=== PATIENT | male | born 1975 | race Caucasian/White ===

== ENCOUNTER 2024-09-18 00:15 | Emergency (ER) | payer BC, SELFPAY ==
[2024-09-18 00:21] VITALS: BP 153/93
[2024-09-18 00:31] VITALS: BMI 37.6
--- NOTE | 2024-09-18 00:50 | ED.GENMED ---
History of Present Illness
General
Chief Complaint: Back Pain
Source: patient, spouse and previous hospital records (ED visit 2019 with complaints of exacerbation of chronic neck pain with right upper extremity radiculopathy)
Exam Limitations: none
Time Seen by Provider: 09/18/24 00:28
Nursing documentation reviewed up to this point in time: agreed with
History of Present Illness
History of Present Illness:
This is a 49-year-old gentleman who has history of cervical as well as lumbar DJD, chronic neck and back pain. History of cervical fusion 2006. He reports a prior history of issues with opioid medications and as such has elected to forego pain
management therapeutics, elects to avoid opioid medications. He admits to chronic low back pain which has been increasing in intensity/severity over the past several months and more so over the past week after he assisted his son with car repairs.
He denies fall nor insightful injury. He denies abdominal pain, no difficulty moving his bowels or bladder, no saddle anesthesia. He has not had a fever nor chills.
He complains of severe low back pain left greater than right with spasms of left low back pain that radiates down his left posterior leg to his left posterior ankle. Pain is much worse with movement, improves to some degree with sitting upright and
with maintaining a mildly right rotated trunk.
He took a dose of Advil earlier today with only minimal temporary relief.
Past History
Past History
ED Past Medical History: GERD, Hypercholesterolemia, Psychiatric (Depression, bipolar disorder, ADHD), Other (Cervical and lumbar degenerative disc disease, migraine headaches, chronic neck and back pain) and Other (Prior history of opioid use
disorder-elects to avoid opioid type medications. (08/2024))
ED Past Surgical History: Orthopedic (C3/C4 cervical fusion, September 2006)
Social History
Tobacco: Smoker
Alcohol: None
Personal:
Living: with family
Employment: Employed
Family History
Family History: Hypertension
Phy Exam
Physical Exam
Physical Exam:
GENERAL: 49-year-old overweight gentleman appears somewhat older than stated age, awake and alert, pleasant, appears in moderate distress, moderately uncomfortable. Sitting Semi-Flores's on stretcher, preferentially leaning slightly to the right.
Intermittently wincing in pain. is accompanying.
EYE: anicteric
NECK: Supple, nontender, no meningismus, no significant adenopathy.
ENT: oral mucosa is moist. No rhinorrhea.
CARDIAC: Regular rate and rhythm. no murmur.
LUNGS: Clear breath sounds bilaterally, no acute respiratory distress, no wheezes/rales/rhonchi
ABDOMEN: Rotund, soft, nondistended, without focal tenderness, no r/g, no cvat. normoactive BS.
BACK: No midline bony tenderness. Moderate left lumbar paravertebral muscle spasm. Markedly limited truncal/lumbar range of motion related to pain.
NEUROLOGICAL: Alert and oriented x3, no focal neuro deficits. Motor strength is 5/5 bilaterally. Gross sensation is intact.
SKIN: Warm and dry, normal color, skin intact. No rash.
MUSCULOSKELETAL: No C/C/E. peripheral pulses are full and equal b/l. No palpable tenderness.
PSYCH: Normal and appropriate interaction.
Course
Orders/Labs/Results
Orders:
Orders
09/18/24 00:48
Ketorolac [Toradol] 60 mg IM NOW STA
Lidocaine [Lidocaine 4% Patch] 1 patch TOPICAL NOW STA
Apply Lidocaine patch(s) to:: left lumbar
Prednisone [Deltasone] 60 mg PO NOW STA
diazePAM [Valium Injection] 10 mg IM NOW STA
Vital Signs
Initial and Last Documented VS:
Initial Vital Signs
Temp Pulse Resp BP Pulse Ox
98.7 F 96 18 153/93 98
09/18/24 00:21 09/18/24 00:21 09/18/24 00:21 09/18/24 00:21 09/18/24 00:21
Last Documented Vital Signs
Temp Pulse Resp BP Pulse Ox
98.7 F 96 18 118/83 94
09/18/24 00:21 09/18/24 00:21 09/18/24 00:21 09/18/24 02:00 09/18/24 02:15
MDM/Problems Addressed
Differential Diagnosis Includes:
Patient presents with acute exacerbation of chronic low back pain with history of lumbar DJD. History consistent with exacerbation of DJD with left-sided sciatica.
No red flags in history nor exam, nothing to suspect acute cord compression nor infectious process. No recent trauma nor instrumentation.
Patient request to avoid opioid medications which is our initial standard of care plan.
At this point no indication for urgent imaging, nor laboratory studies.
Will trial an IM dose of Toradol, Valium as well as plan to initiate a course of oral steroids. Will also place lidocaine patch to left low back.
Chronic conditions affecting care: Other (Lumbar DJD with chronic low back pain)
Acute Exacerbation and/or Progression of Chronic Illness: Other (Lumbar DJD/sciatica)
*Pulse Oximetry
Patient hypoxic: no
*Critical Care Note
Total Time (30-74mins, 75-104mins- exclusive of procedures): Not Applicable
Update Note
Update Note:
02:25
Patient feeling markedly improved, no further muscle spasms and marked improvement in low back pain. Resting comfortably.
Will discharge to home with prescription for tapering course of prednisone, short course of Valium for as needed muscle spasm and will add short course of Celebrex for pain.
While on prednisone/Celebrex recommend GI protection and thus will add a short course of omeprazole.
Recommend continuing lidocaine patches�these can be purchased [id number].
Prompt follow-up with PCP for recheck.
ED Attending Note
-
Portions of this chart may have been created with voice recognition software.� Occasional wrong word or��sound alike� substitutions may have occurred due to the inherent limitations of voice recognition software.
Discharge Plan
Departure
Patient Disposition: Home (Routine Discharge)
Date of Disposition: 09/18/24
Time of Disposition: 02:27
Patient with high blood pressure during this ER visit?: No
Condition: Good
Discharge Problem:
Acute exacerbation of chronic low back pain, Low back pain with sciatica
Instructions: Low Back Pain (DC), Sciatica (DC)
Prescriptions:
New
prednisone 10 mg Tablet
See Rx Instructions .ROUTE .COMPLEX Qty: 30 0RF
Rx Instructions:
Take By Mouth:
40 mg daily x3 days, 30 mg daily x3 days,
20 mg daily x3 days, 10 mg daily x3 days.
omeprazole 40 mg capsule,delayed release(DR/EC)
40 mg PO DAILY Qty: 90 0RF
celecoxib [Celebrex] 100 mg capsule
100 mg PO BID Qty: 60 0RF
diazepam [Valium] 5 mg tablet
5 mg PO TID PRN (Reason: muscle spasm) Qty: 15 0RF
Discontinued
bupropion HCl 300 MG tablet extended release 24 hr
300 mg PO DAILY
Vivanz
30 mg PO DAILY
metronidazole 500 MG tablet
500 mg PO TID Qty: 21 0RF
levofloxacin 500 MG tablet
500 mg PO DAILY Qty: 7 0RF
prednisone 10 MG tablets,dose pack
10 mg PO Daily Qty: 1 0RF
Rx Instructions:
50mg x 2 days, 40mg x 2 days, 30mg x 2 days, 20mg x 2 days, 10mg x 2 days
diazepam 5 MG tablet
5 mg PO TIDPRN PRN (Reason: Pain, spasm) Qty: 15 0RF
gabapentin 300 MG capsule
300 mg PO TID Qty: 40 0RF
Rx Instructions:
Take 1 tablet on day 1. Take one tablet twice a day on day 2 then start one tablet 3 times a day on day 3
methylprednisolone [Medrol (Alfred)] 4 MG tablets,dose pack
4 tab PO . DIRECT Qty: 1 0RF
Referrals:
Italia Delgado CRNP [Family Provider] - Call in 1-3 days for appt
Interventions
Interventions:
*Risk Screen - Suicide Last Done: 09/18/24 00:21
*General Assessment Last Done: 09/18/24 00:21
*Neglect/Abuse Screening Last Done: 09/18/24 00:21
*ED- Fall Risk Assessment Last Done: 09/18/24 00:31
*ED COVID-19 Vaccine History Last Done: 09/18/24 00:21
ED-Musculoskeletal Assessment Last Done: 09/18/24 00:31
Discharge Date and Time
Print Language: GUATEMALAN
[2024-09-18 01:00] VITALS: BP 134/85
[2024-09-18] MEDS: DELTASONE 60 MG PO (01:04)
[2024-09-18] MEDS: LIDOCAINE 4% PATCH 1 PATCH TOPICAL (01:04)
[2024-09-18] MEDS: TORADOL 60 MG IM (01:04)
[2024-09-18] MEDS: VALIUM INJECTION 10 MG IM (01:07)
[2024-09-18 02:00] VITALS: BP 118/83
== END 2024-09-18 02:44 | disposition home or self-care (01) ==
LOC: EMR 00:15
PROVIDERS: EMERGENCY PHYSICIAN Emergency Medicine; FAMILY PHYSICIAN Nurse Practitioner Family
DX: M54.40 Lumbago with sciatica, unspecified side (principal); K21.9 Gastro-esophageal reflux disease without esophagitis; E78.00 Pure hypercholesterolemia, unspecified; F31.9 Bipolar disorder, unspecified; F90.9 Attention-deficit hyperactivity disorder, unspecified type; F17.200 Nicotine dependence, unspecified, uncomplicated; Z82.49 Family history of ischemic heart disease and other diseases of the circulatory system; Z98.1 Arthrodesis status
CPT/HCPCS: 99282; 96372

== ENCOUNTER → 2024-11-02 06:44 | Outpatient (REF) | payer BC, SELFPAY | LOC: PAVMRI 06:44 | PROVIDERS: ATTENDING PHYSICIAN Nurse Practitioner | DX: M54.16 Radiculopathy, lumbar region (principal); M48.02 Spinal stenosis, cervical region | CPT/HCPCS: 72141; 72148 ==

== ENCOUNTER → 2024-11-13 13:17 | Outpatient (REF) | payer BC, SELFPAY | LOC: RAD 13:17 | PROVIDERS: ATTENDING PHYSICIAN Nurse Practitioner | DX: M54.16 Radiculopathy, lumbar region (principal); M48.02 Spinal stenosis, cervical region | CPT/HCPCS: 72050; 72110 ==

== ENCOUNTER 2025-01-06 06:17 | Day surgery (SDC) | payer BC, SELFPAY | END 2025-01-06 16:40 | disposition home or self-care (01) | LOC: GI 06:17 | PROVIDERS: ATTENDING PHYSICIAN Surgery | DX: Z12.11 Encounter for screening for malignant neoplasm of colon (principal); K63.5 Polyp of colon | CPT/HCPCS: 45380; 88305 ==

== ENCOUNTER 2025-01-17 19:25 | Emergency (ER) | payer BC, SELFPAY ==
[2025-01-17 19:28] VITALS: BP 171/106
[2025-01-17 20:58] VITALS: BP 142/89
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
[2025-01-17 21:06] VITALS: BMI 35.2
[2025-01-17] MEDS: TORADOL 30 MG IM (21:14)
[2025-01-17] MEDS: ADACEL 0.5 ML IM (21:15)
== END 2025-01-17 21:35 | disposition home or self-care (01) ==
LOC: EMR 19:25
PROVIDERS: EMERGENCY PHYSICIAN Emergency Medicine; FAMILY PHYSICIAN Nurse Practitioner
DX: S46.002A Unspecified injury of muscle(s) and tendon(s) of the rotator cuff of left shoulder, initial encounter (principal); E78.00 Pure hypercholesterolemia, unspecified; K21.9 Gastro-esophageal reflux disease without esophagitis; F31.9 Bipolar disorder, unspecified; F90.9 Attention-deficit hyperactivity disorder, unspecified type; M50.30 Other cervical disc degeneration, unspecified cervical region; M51.369 Other intervertebral disc degeneration, lumbar region without mention of lumbar back pain or lower extremity pain; F17.200 Nicotine dependence, unspecified, uncomplicated; Z23 Encounter for immunization; Z82.49 Family history of ischemic heart disease and other diseases of the circulatory system; V28.49XA Other motorcycle driver injured in noncollision transport accident in traffic accident, initial encounter; Y92.410 Unspecified street and highway as the place of occurrence of the external cause
CPT/HCPCS: 99284; 96372; 90471; 73030; 73564; 90715